=== PATIENT | female | born 1995 | race Hispanic/Latino ===

== ENCOUNTER 2018-10-16 22:42 | Emergency (ER) | payer OTHER ==
[2018-10-16] MEDS ORDERED: SODIUM CHLORIDE 0.9% 1000ML 1,000 ML IV ONE (23:06)
[2018-10-16 23:16] LABS: CREATININE 0.7 mg/dL (0.5-1.5); POTASSIUM 3.6 mmol/L (3.5-5.1)
[2018-10-16 23:18] LABS: BASOPHILS % (AUTO) 1.8 % (0.0-5.0); EOSINOPHILS % (AUTO) 0.2 % (0.0-8.0); HEMATOCRIT 34.1 % (36-48); LYMPHOCYTES % (AUTO) 5.3 % (21.0-51.0); MEAN CORPUSCULAR HGB CONC 33.3 g/dL (32.0-36.0); MEAN CORPUSCULAR VOLUME 84.1 fL (79-99); MONOCYTES % (AUTO) 4.3 % (3.0-13.0); NEUTROPHILS % (AUTO) 88.4 % (40.0-77.0); PLATELET COUNT (AUTO) 249 K/uL (130-400); RED BLOOD CELL COUNT(AUTO) 4.06 MIL/uL (4.00-5.50); WHITE BLOOD COUNT (AUTO) 15.2 K/uL (4.8-10.8)
[2018-10-16 23:20] LABS: ALBUMIN 3.3 g/dL (3.5-5.0); BILIRUBIN,TOTAL 0.2 mg/dL (0.2-1.0); TOTAL PROTEIN, SERUM 6.8 g/dL (6.0-8.3)
[2018-10-16 23:59] LABS: APPEARANCE,URINE Clear (CLEAR); BILIRUBIN,URINE Negative (NEGATIVE); COLOR,URINE Yellow (YELLOW); GLUCOSE, URINE (UA) Negative (NEGATIVE); KETONES,URINE Negative (NEGATIVE); LEUKOCYTE ESTERASE ,URINE Trace (NEGATIVE); NITRATE,URINE Negative (NEGATIVE); OCCULT BLOOD,URINE Moderate (NEGATIVE); PH,URINE 6.5 (5.0-8.0); PROTEIN,URINE Negative (NEGATIVE); UROBILINOGEN,URINE 0.2 mg/dL (0.2-1.0)
[2018-10-17 00:05] LABS: HCG,QUAL RESULT NEGATIVE (NEGATIVE)
[2018-10-17 00:19] LABS: BACTERIA,URINE None Seen /HPF (None Seen); RBC,URINE 0-1 /HPF (0-1); WBC,URINE 0-1 /HPF (0-1)
[2018-10-17] MEDS ORDERED: ACETAMINOPHEN EXTRA STRENGTH 500 MG TABLET ONE (01:01)
[2018-10-17] MEDS ORDERED: SODIUM CHLORIDE 0.9% 1000ML 1,000 ML IV ONE (01:02)
[2018-10-17] MEDS ORDERED: IOHEXOL-350 75 ML VIAL IV ONE (02:35)
[2018-10-17] MEDS ORDERED: DEXAMETHASONE SOD PHOSPHATE 10MG/ML 1ML VIAL ONE (04:52)
[2018-10-17] MEDS ORDERED: CEFTRIAXONE SODIUM 1 GM ONE (04:53)
== END 2018-10-17 05:14 | disposition home or self-care (01) ==
LOC: EDH 22:42
DX: J03.90 Acute tonsillitis, unspecified (principal); R07.89 Other chest pain; R50.9 Fever, unspecified
CPT/HCPCS: 36415; 71045; 71275; 80053; 81001; 81025; 84484; 85025; 87804 ×2; 93005; 96372; 96374; 99285; J0696; J1100; J7030 ×2; Q9967